=== PATIENT | female | born 1960 | race African-American/Black ===

== ENCOUNTER 2020-02-21 00:13 | Emergency (ER) | payer SELFPAY ==
[~2020-02-21] VITALS: Ht 175.3 cm; Wt 105.0 kg
[2020-02-21] MEDS ORDERED: ACETAMINOPHEN WITH CODEINE 300/30MG TABLET PO STA (00:55)
[2020-02-21] MEDS ORDERED: KETOROLAC 60MG/2ML VIAL IM STA (00:55)
[2020-02-21 02:29] VITALS: BP 135/94
== END 2020-02-21 02:30 | disposition home or self-care (01) ==
LOC: ER 00:13
DX: S39.012A Strain of muscle, fascia and tendon of lower back, initial encounter (principal); W01.0XXA Fall on same level from slipping, tripping and stumbling without subsequent striking against object, initial encounter; Y93.89 Activity, other specified; Y92.89 Other specified places as the place of occurrence of the external cause; Y99.8 Other external cause status
CPT/HCPCS: 96372; 99283; J1885

== ENCOUNTER 2024-09-04 04:51 | Emergency (ER) | payer SELFPAY ==
[~2024-09-04] VITALS: Ht 170.2 cm; Wt 95.0 kg
[2024-09-04 04:58] VITALS: O2SAT 98
[2024-09-04 06:18] LABS: BASOPHILS % 0.4 % (0.0-2.0); EOSINOPHILS % 2.7 % (0.0-5.0); HEMATOCRIT. 39.2 % (36.0-48.0); HEMOGLOBIN. 12.8 g/dL (12.0-16.0); LYMPHOCYTES % 18.9 % (20.0-50.0); MEAN CORPUSCULAR HEMOGLOBIN 29.5 pg (28.0-32.0); MEAN CORPUSCULAR HGB CONC 32.6 g/dL (31.0-37.0); MEAN CORPUSCULAR VOLUME 90.5 fL (81.0-99.0); MEAN PLATELET VOLUME 10.3 fl (7.4-10.4); PLATELET 194 x1000/uL (130-400); RED BLOOD CELL COUNT 4.33 mill/uL (4.2-5.4); WHITE BLOOD COUNT 8.2 x1000/uL (4.5-11.0)
[2024-09-04 06:21] LABS: CHLORIDE 108 mEq/L (98-107); POTASSIUM 3.9 mEq/L (3.5-5.1); SODIUM 140 mEq/L (136-145)
[2024-09-04 06:22] LABS: CALCIUM 8.9 mg/dL (8.7-10.4); CARBON DIOXIDE 28 mEq/L (21-32)
[2024-09-04] MEDS: MORPHINE SULFATE 4 MG/ML INJ (FOR IV/IM USE) IV STA (06:24)
[2024-09-04] MEDS: ONDANSETRON HCL 4MG/2ML INJ IV STA (06:25)
[2024-09-04 06:27] LABS: CREATININE 0.9 mg/dL (0.6-1.0); GLUCOSE 122 mg/dL (70-105); UREA NITROGEN BLOOD 14 mg/dL (9-23)
[2024-09-04 06:33] LABS: INR 0.9; PROTHROMBIN TIME 10.6 sec (9.6-11.0)
[2024-09-04] MEDS: SODIUM CHLORIDE 0.9% 1,000 ML IV ONE (07:17)
[2024-09-04] MEDS ORDERED: IBUP-2028 MT (07:39)
[2024-09-04 08:10] VITALS: BP 148/96; PULSE 73; RESP 20; TEMP 36.72516; O2SAT 97
== END 2024-09-04 08:20 | disposition home or self-care (01) ==
LOC: ER 04:51
DX: S52.502A Unspecified fracture of the lower end of left radius, initial encounter for closed fracture (principal); G93.0 Cerebral cysts; M79.10 Myalgia, unspecified site; W18.39XA Other fall on same level, initial encounter; Y93.89 Activity, other specified; Y92.89 Other specified places as the place of occurrence of the external cause; Y99.8 Other external cause status
CPT/HCPCS: 80048; 85025; 85610; 36415; 71045; 72170; 73030; 73080; 73110; 73130; 70450; 29125; 96361; 96374; 96375; 99285; J2405; J2270; J7030; Z7610 ×4; A4565